=== PATIENT | female | born 1930 | race Caucasian/White ===

== ENCOUNTER 2017-06-03 19:52 | Emergency (ER) | payer MEDICARE, OTHER ==
[2017-06-03 20:05] VITALS: BP 126/50
[2017-06-03] MEDS ORDERED: Sodium Chloride 0.9% 10 ML Syringe FLUSH PRN (20:13)
[2017-06-03] MEDS ORDERED: Sodium Chloride 0.9% 1,000 ML IV SCH (20:15)
--- NOTE | 2017-06-03 21:31 | EDM.PDOC ---
ED HPI GENERAL MEDICAL PROBLEM - General Chief Complaint: Neurological Problem Stated Complaint: NAUSEA ABDOMINAL PAIN DIZZY Time Seen by Provider: 06/03/17 20:04 Source of Information: Reports: Patient, Family History Limitations: Reports: No Limitations - History of Present Illness INITIAL COMMENTS - FREE TEXT/NARRATIVE: The patient presents with near syncope. She has been having trouble with occipital headaches and dizziness. She had an MRI today that was negative. This evening she was sitting at the table and she got lightheaded and nearly passed out. This is different from the dizziness she has been experiencing. She has a headache but that is normal for her. She denies fever, chills, cough , chest pain, shortness of breath, abdominal pain, nausea or vomiting. She has no dysuria but she is going more often. She does have a soar throat for a couple of days. Onset: Gradual Duration: Hour(s): Severity: Moderate Improves with: Reports: None Worsens with: Reports: None Context: Reports: Activity (She was sitting at the table whent this started) Associated Symptoms: Reports: No Other Symptoms - Related Data Allergies Allergy/AdvReac Type Severity Reaction Status Date / Time No Known Allergies Allergy Verified 06/03/17 20:03 Home Meds: Home Meds Diltiazem HCl [Diltiazem 24Hr ER] 300 mg PO DAILY 03/12/15 [History] Bio Active 100 mg PO DAILY 01/07/16 [History] Calcium Carb/D3/Magnesium/Zinc [Jc Mag Zinc + D3] 1 each PO DAILY 01/07/16 [ History] Cellwise 1 tab PO DAILY 01/07/16 [History] Dabigatran Etexilate Mesylate [Pradaxa] 150 mg PO BID 01/07/16 [History] Gabapentin [Neurontin] 300 mg PO BEDTIME 01/07/16 [History] Hydrochlorothiazide 25 mg PO DAILY 01/07/16 [History] Multivitamin W-Minerals/Lutein [Vision Plus Lutein Vitamin] 1 each PO DAILY [History] Multivitamin [One Daily] 1 each PO DAILY 01/07/16 [History] Potassium Chloride [Klor-Con 10] 10 meq PO BIDMEALS 01/07/16 [History] Zolpidem [Ambien] 5 mg PO BEDTIME PRN 01/07/16 [History] traMADol [Ultram] 50 mg PO Q8H PRN 01/07/16 [History] Past Medical History HEENT History: Reports: Glaucoma, Impaired Vision, Macular Degeneration Cardiovascular History: Reports: Arrhythmia, Hypertension Musculoskeletal History: Reports: Arthritis - Past Surgical History GI Surgical History: Reports: Cholecystectomy Social & Family History - Tobacco Use Smoking Status *Q: Never Smoker Second Hand Smoke Exposure: No - Caffeine Use Caffeine Use: Reports: None - Recreational Drug Use Recreational Drug Use: No - Living Situation & Occupation Living situation: Reports: , Alone Occupation: Retired ED ROS GENERAL - Review of Systems Review Of Systems: See Below Constitutional: Reports: No Symptoms HEENT: Reports: No Symptoms Respiratory: Reports: No Symptoms Cardiovascular: Reports: Lightheadedness. Denies: Chest Pain Endocrine: Reports: No Symptoms GI/Abdominal: Reports: No Symptoms : Reports: No Symptoms Musculoskeletal: Reports: No Symptoms Skin: Reports: No Symptoms ED EXAM, NEURO - Physical Exam Exam: See Below Exam Limited By: No Limitations General Appearance: Alert, No Apparent Distress Ears: Normal External Exam Nose: Normal Inspection Head Exam: Atraumatic, Normocephalic Neck: Normal Inspection Respiratory/Chest: No Respiratory Distress, Lungs Clear, Normal Breath Sounds Cardiovascular: Regular Rate, Rhythm, No Edema, No Murmur GI/Abdominal: Soft, Non-Tender, No Organomegaly, No Mass Neurological: Alert, No Motor/Sensory Deficits, Oriented x 3 EKG INTERPRETATION EKG Date: 06/03/17 Time: 20:24 Rhythm: A-Fib Rate (Beats/Min): 66 Manning: Normal QRS: Normal ST-T: Normal QT: Normal EKG Interpretation Comments: Q waves in the anterior leads Course - Vital Signs Last Recorded V/S: Last Vital Signs Temp 98.0 F 06/03/17 20:03 Pulse 60 06/03/17 20:03 Resp 16 06/03/17 20:03 BP 126/50 L 06/03/17 20:03 Pulse Ox 94 L 06/03/17 20:03 - Orders/Labs/Meds Orders: Active Orders 24 hr Category Date Time Status Cardiac Monitoring [RC] . DIRECTED Care 06/03/17 20:13 Active EKG Documentation Completion [RC] STAT Care 06/03/17 20:14 Active Holter Monitor 48 Hours [RC] .PRN Care 02/13/18 22:19 Active Peripheral IV Care [RC] . DIRECTED Care 06/03/17 20:14 Active CULTURE STREP A CONFIRMATION [] Stat Lab 06/03/17 20:30 Results STREP SCRN A RAPID W CULT CONF [] Stat Lab 06/03/17 20:30 Results Sodium Chloride 0.9% [Normal Saline] 1,000 ml Med 06/03/17 20:15 Active IV .BOLUS Sodium Chloride 0.9% [Saline Flush] Med 06/03/17 20:13 Active 10 ml FLUSH ASDIRECTED PRN Peripheral IV Insertion Adult [OM.PC] Stat Oth 06/03/17 20:13 Ordered Medication Orders Sodium Chloride (Normal Saline) 1,000 mls @ 1,000 mls/hr IV .BOLUS SHILOH Last Admin: 06/03/17 20:27 Dose: 1,000 mls/hr Sodium Chloride (Saline Flush) 10 ml FLUSH ASDIRECTED PRN PRN Reason: Keep Vein Open Last Admin: 06/03/17 20:27 Dose: 10 ml Labs: Laboratory Tests 06/03/17 06/03/17 06/03/17 Range/Units 20:14 20:14 21:33 WBC 8.58 (3.98-10.04) K/mm3 RBC 4.77 (3.98-5.22) M/mm3 Hgb 15.2 (11.2-15.7) gm/L Hct 44.4 (34.1-44.9) % MCV 93.1 (79.4-94.8) fl MCH 31.9 (25.6-32.2) pg MCHC 34.2 (32.2-35.5) g/dl RDW Std Deviation 46.0 (36.4-46.3) fL Plt Count 187 (182-369) K/mm3 MPV 10.6 (9.4-12.3) fl Neut % (Auto) 78.9 H (34.0-71.1) % Lymph % (Auto) 6.8 L (19.3-51.7) % [place] % (Auto) 13.1 H (4.7-12.5) % Eos % (Auto) 0.8 (0.7-5.8) Baso % (Auto) 0.2 (0.1-1.2) % Neut # (Auto) 6.77 H (1.56-6.13) K/mm3 Lymph # (Auto) 0.58 L (1.18-3.74) K/mm3 [place] # (Auto) 1.12 H (0.24-0.36) K/mm3 Eos # (Auto) 0.07 (0.04-0.36) K/mm3 Baso # (Auto) 0.02 (0.01-0.08) K/mm3 Manual Slide Review Normal smear Sodium 138 (136-145) mEq/L Potassium 3.0 L (3.5-5.1) mEq/L Chloride 99 (98-107) mEq/L Carbon Dioxide 30 (21-32) mEq/L Anion Gap 12.0 (5-15) BUN 12 (7-18) mg/dL Creatinine 0.9 (0.55-1.02) mg/dL Est Cr Clr Drug Dosing 37.12 mL/min Estimated GFR (MDRD) 59 (>60) mL/min BUN/Creatinine Ratio 13.3 L (14-18) Glucose 127 H (83-115) mg/dL Calcium 9.0 (8.5-10.1) mg/dL Total Bilirubin 0.9 (0.2-1.0) mg/dL AST 21 (15-37) U/L ALT 25 (14-59) U/L Alkaline Phosphatase 88 (46-116) U/L Troponin I < 0.017 (0.00-0.056) ng/mL Total Protein 6.9 (6.4-8.2) g/dl Albumin 3.5 (3.4-5.0) g/dl Globulin 3.4 gm/dL Albumin/Globulin Ratio 1.0 (1-2) Urine Color Yellow (Yellow) Urine Appearance Clear (Clear) Urine pH 7.5 (5.0-8.0) Ur Specific [place] 1.020 (1.005-1.030) Urine Protein Negative (Negative) Urine Glucose (UA) Negative (Negative) Urine Ketones Negative (Negative) Urine Occult Blood Negative (Negative) Urine Nitrite Negative (Negative) Urine Bilirubin Negative (Negative) Urine Urobilinogen 0.2 (0.2-1.0) Ur Leukocyte Esterase 1+ H (Negative) Urine RBC 0-5 (0-5) /hpf Urine WBC 10-20 H (0-5) /hpf Ur Epithelial Cells 20-30 H (0-5) /hpf Urine Bacteria Many H (FEW) /hpf Urine Mucus Not seen (FEW) /hpf Meds: Medications Generic Name Dose Route Start Last Admin Trade Name Freq PRN Reason Stop Dose Admin Sodium Chloride 1,000 mls @ 1,000 mls/hr 06/03/17 20:15 06/03/17 20:27 Normal Saline IV 1,000 mls/hr .BOLUS SHILOH Administration Sodium Chloride 10 ml 06/03/17 20:13 06/03/17 20:27 Saline Flush FLUSH 10 ml ASDIRECTED PRN Administration Keep Vein Open - Re-Assessments/Exams Free Text/Narrative Re-Assessment/Exam: 06/03/17 21:47 I ordered an IV NS 1L bolus, EKG, labs and a UA. Her EKG shows A-fib with no acute changes. She has a history of A-fib. Her CBC looks good. Her K was low at 3. She is on oral potassium. Her glucose is 127. Her troponin was negative. Her strep was negative. I am waiting for her UA now. 06/03/17 22:22 Her UA looks contaminated. I will get her on a holter monitor for 48 hours. Departure - Departure Time of Disposition: 22:25 Disposition: Home, Self-Care 01 Condition: Good Clinical Impression: Near syncope - Discharge Information Referrals: Michelle Wright PA-C [Primary Care Provider] - Forms: ED Department Discharge Additional Instructions: Take your medication as prescribed. Wear the holter monitor for 48 hours. Follow up with Michelle Wright within a week. Please return if you are worse. - My Orders Last 24 Hours: My Active Orders 06/03/17 20:13 Cardiac Monitoring [RC] . DIRECTED Sodium Chloride 0.9% [Saline Flush] 10 ml FLUSH ASDIRECTED PRN Peripheral IV Insertion Adult [OM.PC] Stat 06/03/17 20:14 EKG Documentation Completion [RC] STAT Peripheral IV Care [RC] . DIRECTED 06/03/17 20:15 Sodium Chloride 0.9% [Normal Saline] 1,000 ml IV .BOLUS 06/03/17 20:30 CULTURE STREP A CONFIRMATION [] Stat STREP SCRN A RAPID W CULT CONF [] Stat 06/03/17 22:19 Holter Monitor 48 Hours [RC] .PRN - Assessment/Plan Last 24 Hours: My Active Orders 06/03/17 20:13 Cardiac Monitoring [RC] . DIRECTED Sodium Chloride 0.9% [Saline Flush] 10 ml FLUSH ASDIRECTED PRN Peripheral IV Insertion Adult [OM.PC] Stat 06/03/17 20:14 EKG Documentation Completion [RC] STAT Peripheral IV Care [RC] . DIRECTED 06/03/17 20:15 Sodium Chloride 0.9% [Normal Saline] 1,000 ml IV .BOLUS 06/03/17 20:30 CULTURE STREP A CONFIRMATION [RM] Stat STREP SCRN A RAPID W CULT CONF [] Stat 06/03/17 22:19 Holter Monitor 48 Hours [RC] .PRN
== END 2017-06-03 22:50 | disposition home or self-care (01) ==
LOC: JD.ED 19:52
DX: R55 Syncope and collapse (principal); I10 Essential (primary) hypertension; Z79.899 Other long term (current) drug therapy
CPT/HCPCS: 36415; 80053; 81001; 84484; 85025; 87081; 87430; 93005; 93010; 93225; 93226; 96360; 99284-25; 99285-25; J7040; J7050

== ENCOUNTER 2019-02-25 21:22 | Emergency (ER) | payer MEDICARE, OTHER ==
[2019-02-25 21:38] VITALS: BP 134/56; PULSE 61
[2019-02-25] MEDS ORDERED: Sodium Chloride 0.9% 1,000 ML IV STA (21:53)
[2019-02-25] MEDS ORDERED: Ondansetron 4 MG/2 ML SDV IVPUSH ONE (21:53)
[2019-02-25] MEDS ORDERED: HYDROmorphone 0.5 MG/0.5 ML Syringe IVPUSH ONE (21:55)
[2019-02-25] MEDS: Sodium Chloride 0.9% 10 ML Syringe FLUSH PRN ×2 (22:15→23:36)
--- NOTE | 2019-02-25 22:49 | EDM.PDOC ---
ED HPI GENERAL MEDICAL PROBLEM - General Chief Complaint: Gastrointestinal Problem Stated Complaint: VOMITING DIARRHEA Time Seen by Provider: 02/25/19 21:44 Source of Information: Reports: Patient History Limitations: Reports: No Limitations - History of Present Illness INITIAL COMMENTS - FREE TEXT/NARRATIVE: The patient presents with nausea, vomiting, diarrhea and lower abdominal pain. This all started about 2000 tonight. She ate dinner about 6pm and she had no issues with that. She denies fever, chills, cough, chest pain, shortness of breath, or dysuria. She does not have a gallbladder. She still has her appendix. Onset: Sudden Duration: Hour(s): Location: Reports: Abdomen Quality: Reports: Sharp Severity: Moderate Improves with: Reports: None Worsens with: Reports: None Associated Symptoms: Reports: Nausea/Vomiting. Denies: Chest Pain, Cough, Fever /Chills, Headaches, Shortness of Breath Abdomen Pain Score (Numeric/FACES): 3 - Related Data Allergies Allergy/AdvReac Type Severity Reaction Status Date / Time No Known Allergies Allergy Verified 02/25/19 21:35 Home Meds: Home Meds dilTIAZem HCl [Diltiazem 24Hr ER] 300 mg PO DAILY 03/12/15 [History] Hydrochlorothiazide 25 mg PO DAILY 01/07/16 [History] Multivitamin W-Minerals/Lutein [Vision Plus Lutein Vitamin] 1 each PO DAILY [History] Potassium Chloride [Klor-Con 10] 10 meq PO BIDMEALS 01/07/16 [History] Zolpidem [Ambien] 5 mg PO BEDTIME PRN 01/07/16 [History] traMADol [Ultram] 50 mg PO Q8H PRN 01/07/16 [History] Apixaban [Eliquis] 5 mg PO BID 02/25/19 [History] Fluticasone Propionate 1 spray SHA DAILY 02/25/19 [History] Folic Acid/Vit B Complex and C [Activite Tablet] 2 mg PO BID 02/25/19 [History] Furosemide 20 mg PO DAILY 02/25/19 [History] Girard Q Plus 2 tab PO DAILY 02/25/19 [History] Propylene Glycol/PEG 400/Pf [Systane 0.3-0.4% Eye Drops] 1 each OP ASDIRECTED [History] Ondansetron [Zofran ODT] 4 mg PO Q6H PRN #20 tab.dis 02/26/19 [Rx] Past Medical History HEENT History: Reports: Epistaxis, Glaucoma, Impaired Vision, Macular Degeneration Cardiovascular History: Reports: Afib, Hypertension Gastrointestinal History: Reports: Diverticulosis [employer] History: Reports: Musculoskeletal History: Reports: Arthritis - Past Surgical History HEENT Surgical History: Reports: Cataract Surgery, Tonsillectomy GI Surgical History: Reports: Cholecystectomy Female Surgical History: Reports: Mastectomy Musculoskeletal Surgical History: Reports: Knee Replacement, Other (See Below) Other Musculoskeletal Surgeries/Procedures:: Spinal stenosis Social & Family History - Tobacco Use Smoking Status *Q: Unknown Ever Smoked - Caffeine Use Caffeine Use: Reports: None - Living Situation & Occupation Living situation: Reports: , Alone Occupation: Retired ED ROS GENERAL - Review of Systems Review Of Systems: See Below Constitutional: Reports: No Symptoms HEENT: Reports: No Symptoms Respiratory: Reports: No Symptoms Cardiovascular: Reports: No Symptoms Endocrine: Reports: No Symptoms GI/Abdominal: Reports: Abdominal Pain, Diarrhea, Nausea, Vomiting : Reports: No Symptoms Musculoskeletal: Reports: No Symptoms ED EXAM, GI/ABD - Physical Exam Exam: See Below Exam Limited By: No Limitations General Appearance: Alert, No Apparent Distress Ears: Normal External Exam Nose: Normal Inspection Head: Atraumatic, Normocephalic Neck: Normal Inspection Respiratory/Chest: No Respiratory Distress, Lungs Clear, Normal Breath Sounds Cardiovascular: Regular Rate, Rhythm, No Edema, No Murmur GI/Abdominal Exam: Soft, No Organomegaly, No Mass, Tender (Moderate tenderness to the lower abdomen) Course - Vital Signs Last Recorded V/S: Last Vital Signs Temp 97.4 F 02/25/19 21:35 Pulse 61 02/25/19 21:35 Resp 18 02/25/19 21:35 BP 134/56 L 02/25/19 21:35 Pulse Ox 95 02/25/19 21:35 - Orders/Labs/Meds Orders: Active Orders 24 hr Category Date Time Status Peripheral IV Care [RC] . DIRECTED Care 02/25/19 21:53 Active Abdomen Pelvis w Cont [CT] Stat Exams 02/25/19 21:53 Taken Sodium Chloride 0.9% [Saline Flush] Med 02/25/19 21:53 Active 10 ml FLUSH ASDIRECTED PRN ED Antiemetic Medication Reflex [OM.PC] Stat Oth 02/25/19 21:53 Ordered Peripheral IV Insertion Adult [OM.PC] Stat Oth 02/25/19 21:53 Ordered Medication Orders Sodium Chloride (Saline Flush) 10 ml FLUSH ASDIRECTED PRN PRN Reason: Keep Vein Open Last Admin: 02/25/19 23:36 Dose: 10 ml Admin: 02/25/19 22:15 Dose: 10 ml Labs: Laboratory Tests 02/25/19 02/25/19 02/26/19 Range/Units 22:15 22:15 00:30 WBC 14.15 H (3.98-10.04) K/mm3 RBC 5.07 (3.98-5.22) M/mm3 Hgb 15.9 H (11.2-15.7) gm/dl Hct 46.5 H (34.1-44.9) % MCV 91.7 (79.4-94.8) fl MCH 31.4 (25.6-32.2) pg MCHC 34.2 (32.2-35.5) g/dl RDW Std Deviation 46.1 (36.4-46.3) fL Plt Count 201 (182-369) K/mm3 MPV 10.6 (9.4-12.3) fl Neut % (Auto) 89.0 H (34.0-71.1) % Lymph % (Auto) 5.1 L (19.3-51.7) % [place] % (Auto) 5.1 (4.7-12.5) % Eos % (Auto) 0.6 L (0.7-5.8) Baso % (Auto) 0.1 (0.1-1.2) % Neut # (Auto) 12.59 H (1.56-6.13) K/mm3 Lymph # (Auto) 0.72 L (1.18-3.74) K/mm3 [place] # (Auto) 0.72 H (0.24-0.36) K/mm3 Eos # (Auto) 0.09 (0.04-0.36) K/mm3 Baso # (Auto) 0.01 (0.01-0.08) K/mm3 Manual Slide Review Abnormal smear Sodium 140 (136-145) mEq/L Potassium 2.8 L (3.5-5.1) mEq/L Chloride 99 (98-107) mEq/L Carbon Dioxide 32 (21-32) mEq/L Anion Gap 11.8 (5-15) BUN 25 H (7-18) mg/dL Creatinine 1.0 (0.55-1.02) mg/dL Est Cr Clr Drug Dosing 32.17 mL/min Estimated GFR (MDRD) 52 (>60) mL/min BUN/Creatinine Ratio 25.0 H (14-18) Glucose 170 H (83-115) mg/dL Calcium 9.4 (8.5-10.1) mg/dL Total Bilirubin 0.6 (0.2-1.0) mg/dL AST 13 L (15-37) U/L ALT 23 (14-59) U/L Alkaline Phosphatase 97 (46-116) U/L Total Protein 7.2 (6.4-8.2) g/dl Albumin 3.7 (3.4-5.0) g/dl Globulin 3.5 gm/dL Albumin/Globulin Ratio 1.1 (1-2) Lipase 104 (73-393) U/L Urine Color Yellow (Yellow) Urine Appearance Clear (Clear) Urine pH 6.5 (5.0-8.0) Ur Specific [place] 1.015 (1.005-1.030) Urine Protein Negative (Negative) Urine Glucose (UA) Negative (Negative) Urine Ketones Negative (Negative) Urine Occult Blood Trace-lysed H (Negative) Urine Nitrite Negative (Negative) Urine Bilirubin Negative (Negative) Urine Urobilinogen 0.2 (0.2-1.0) Ur Leukocyte Esterase Negative (Negative) Urine RBC 0-5 (0-5) /hpf Urine WBC Not seen (0-5) /hpf Ur Squamous Epith Cells 0-5 (0-5) /hpf Urine Bacteria Moderate H (FEW) /hpf Hyaline Casts 5-10 H (0-5) /lpf Urine Mucus Few (FEW) /hpf Meds: Medications Generic Name Dose Route Start Last Admin Trade Name Freq PRN Reason Stop Dose Admin Sodium Chloride 10 ml 02/25/19 21:53 02/25/19 23:36 Saline Flush FLUSH 10 ml ASDIRECTED PRN Administration Keep Vein Open Discontinued Medications Generic Name Dose Route Start Last Admin Trade Name Freq PRN Reason Stop Dose Admin Diatrizoate Meglum/Diatrizoate Sod 90 ml 02/25/19 22:56 02/25/19 23:35 Gastrografin 37% PO 02/25/19 22:57 90 ml ONETIME ONE Administration Hydromorphone HCl 0.25 mg 02/25/19 21:55 02/25/19 22:14 Dilaudid IVPUSH 02/25/19 21:56 0.25 mg ONETIME ONE Administration Sodium Chloride 1,000 mls @ 1,000 mls/hr 02/25/19 21:53 02/25/19 22:12 Normal Saline IV 02/25/19 22:52 1,000 mls/hr .BOLUS STA Administration Iopamidol 100 ml 02/25/19 22:56 02/25/19 23:36 Isovue-300 (61%) IVPUSH 02/25/19 22:57 100 ml ONETIME ONE Administration Ondansetron HCl 4 mg 02/25/19 21:53 02/25/19 22:12 Zofran IVPUSH 02/25/19 21:54 4 mg ONETIME ONE Administration - Re-Assessments/Exams Free Text/Narrative Re-Assessment/Exam: 02/25/19 22:48 I ordered an IV NS 500ml bolus, zofran 4mg IV, dilaudid 0.25mg IV, labs, UA and a CT of her abdomen and pelvis. 02/26/19 01:20 Her WBC was elevated at 14.15. Her K was low at 2.8. It has been low in the past. Her glucose was elevated at 170. Her lipase was negative. Her CT shows diffuse, mild wall thickening of the bladder. In the correct clinical setting, this may suggest cystitis. Recommend correlation with laboratory findings. Alternatively this may be secondary to chronic outlet obstruction. Moderate to severe atherosclerotic changes in the visualized arteries, increased compared with the previous study. 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 Stable findings consistent with a previous cholecystectomy. Interval development of mild dilatation of the biliary ducts, this may be physiological due to the previous cholecystectomy. Increase in size of the multiple renal cysts bilaterally. Colonic diverticulosis. No evidence for diverticulitis. Small hiatal hernia. Incidental/nonacute findings are listed in the report. I am waiting for her UA now. 02/26/19 01:46 Her UA shows no UTI. I will discharge her home with some zofran. Departure - Departure Time of Disposition: 01:50 Disposition: Home, Self-Care 01 Condition: Good Clinical Impression: Abdominal pain, Diarrhea Vomiting Qualifiers: Vomiting type: unspecified Vomiting Intractability: non-intractable Nausea presence: with nausea Qualified Code(s): R11.2 - Nausea with vomiting, unspecified - Discharge Information *PRESCRIPTION DRUG MONITORING PROGRAM REVIEWED*: No *COPY OF PRESCRIPTION DRUG MONITORING REPORT IN PATIENT KAVITA: No Prescriptions: Ondansetron [Zofran ODT] 4 mg PO Q6H PRN #20 tab.dis PRN Reason: Nausea\vomiting Referrals: Devon Shelby MD [Primary Care Provider] - 1 Week Forms: ED Department Discharge Additional Instructions: Drink plenty of fluids. Take the zofran as needed for nausea and vomiting. Advance your diet as tolerated. Please return if you are worse. Follow up with Dr Shelby within a week. - My Orders Last 24 Hours: My Active Orders 02/25/19 21:53 Peripheral IV Care [RC] . DIRECTED Abdomen Pelvis w Cont [CT] Stat Sodium Chloride 0.9% [Saline Flush] 10 ml FLUSH ASDIRECTED PRN ED Antiemetic Medication Reflex [OM.PC] Stat Peripheral IV Insertion Adult [OM.PC] Stat - Assessment/Plan Last 24 Hours: My Active Orders 02/25/19 21:53 Peripheral IV Care [RC] . DIRECTED Abdomen Pelvis w Cont [CT] Stat Sodium Chloride 0.9% [Saline Flush] 10 ml FLUSH ASDIRECTED PRN ED Antiemetic Medication Reflex [OM.PC] Stat Peripheral IV Insertion Adult [OM.PC] Stat
[2019-02-25] MEDS ORDERED: Iopamidol 612 MG/ML 100 ML Bottle IVPUSH ONE (22:56)
[2019-02-25] MEDS ORDERED: Diatrizoate Meglumine/Diatrizoate Sodium 37% 120 ML Bottle PO ONE (22:56)
--- NOTE | 2019-02-26 09:48 | CT ---
CT abdomen and pelvis Technique: Multiple axial sections were obtained from above the dome of the diaphragm inferiorly through the pubic symphysis. Intravenous and oral contrast has been given. Delayed images were obtained through the bladder. Comparison: Previous CT abdomen and pelvis exam of 08/18/12. Findings: Visualized lung bases show nothing. Mild intrahepatic biliary duct dilatation is seen. Gallbladder not visualized presumably from prior cholecystectomy. Biliary duct dilatation may relate to previous cholecystectomy if patient has no abnormal biliary enzymes. No other focal abnormality is identified within the liver. Spleen appears within normal limits. Adrenal glands show no nodule. Pancreas is within normal limits. Kidneys show evidence of cysts. These cysts have increased in size from previous exam. Delayed images show contrast within both distal ureters and within the bladder. Aorta shows atherosclerotic change without aneurysm. No retroperitoneal adenopathy is seen. No mesenteric abnormalities are seen. No pelvic mass is noted. Bladder wall is minimally prominent which is most likely normal. Mild diverticulosis noted within the sigmoid colon and descending colon without diverticulitis. No free fluid or inflammatory change is noted. Appendix is visualized and is normal in size. Small hiatal hernia is noted. Bone window settings were reviewed which show degenerative change within the spine most prominent at L4-L5 with mild spondylolisthesis due to severe degenerative apophyseal change. Degenerative change also noted within both hips. Sacroiliac joints also show vacuum phenomena and degenerative sclerosis. Impression: 1. Multiple findings as noted above. Nothing acute is suspected on CT study of the abdomen and pelvis. 2. Preliminary report makes mention of stenosis within the SMA. This cannot be confirmed as a definite finding as this study was not performed as a CT angiogram protocol. Diagnostic code #2 I mostly agree with preliminary report from [facility] (difficult to confirm SMA stenosis), finalized on 02/26/19, 1:00 AM Central Time, code #2
== END 2019-02-26 01:56 | disposition home or self-care (01) ==
LOC: JD.ED 21:22
DX: R10.30 Lower abdominal pain, unspecified (principal); R11.2 Nausea with vomiting, unspecified; R19.7 Diarrhea, unspecified; I10 Essential (primary) hypertension; I48.91 Unspecified atrial fibrillation; Z79.899 Other long term (current) drug therapy; Z79.01 Long term (current) use of anticoagulants; Z90.49 Acquired absence of other specified parts of digestive tract
CPT/HCPCS: 36415; 74177; 74177-26; 80053; 81001; 83690; 85025; 96361; 96374; 99284-25; J1170; J2405; J7040; Q9963; Q9967

== ENCOUNTER 2019-10-14 21:23 | Emergency (ER) | payer MEDICARE, OTHER ==
[2019-10-14 22:01] VITALS: BP 152/92; PULSE 78
--- NOTE | 2019-10-15 00:17 | EDM.PDOC ---
ED HPI GENERAL MEDICAL PROBLEM - General Chief Complaint: Lower Extremity Injury/Pain Stated Complaint: ANKLE PAIN Time Seen by Provider: 10/14/19 23:54 Source of Information: Reports: Patient History Limitations: Reports: No Limitations - History of Present Illness INITIAL COMMENTS - FREE TEXT/NARRATIVE: Mrs. Boggs is a very pleasant 89-year-old woman with a past medical history significant for untreated peripheral neuropathy due to lumbar spinal stenosis, who now presents to the ED stating that she was woken at 3 AM with medial right foot pain. The pain is intermittent and shock-like. She applied a topical lotion, along with a homeopathic solution named "diabetic nerve pain reliever" and 2 tablets of tramadol (note that the patient does not have diabetes). She states that her pain resolved, but then recurred around 20:00. She again lied the topical lotion and homeopathic solution, along with 2 tablets of tramadol, which improved her symptoms, however, did not resolve them completely, wherefore she came to the ED. The patient denies prior similar symptoms, however, she acknowledges that she has a history of peripheral neuropathy, for which she is prescribed gabapentin, however, she states that she does not take the gabapentin, because it makes her feel depressed. She denies recent injury to the foot or ankle. Here in the ED, the patient's initial BP is found to be mildly elevated at 152/92, otherwise, she is hemodynamically stable, afebrile, saturating 94% on room air. Other than the right foot pain, the patient denies recent fever, chills, sore throat, ear pain, nasal or sinus congestion, cough, dyspnea, chest pain, palpitations, nausea, vomiting, constipation, diarrhea, abdominal pain, urinary symptoms, recent weight gain or weight loss, recent bloody bowel movements or black bowel movements, recent joint aches, headaches, or rashes. The patient's PCP is Dr. Devon Shelby. She has an appointment to see him on 10/26/2019. Her EP Cut Order Hand is Dr. Mauro Bryson. Treatments HOTEL MAID: Reports: Other (see below) Other Treatments HOTEL MAID: tramadol Right Feet Pain Score (Numeric/FACES): 3 - Related Data Allergies Allergy/AdvReac Type Severity Reaction Status Date / Time No Known Allergies Allergy Verified 02/25/19 21:35 Home Meds: Home Meds dilTIAZem HCl [Diltiazem 24Hr ER] 300 mg PO DAILY 03/12/15 [History] Hydrochlorothiazide 25 mg PO DAILY 01/07/16 [History] Multivit with Minerals/Lutein [Vision Plus Lutein Vitamin] 1 each PO DAILY 01/07/16 [History] Potassium Chloride [Klor-Con 10] 10 meq PO BIDMEALS 01/07/16 [History] Zolpidem [Ambien] 5 mg PO BEDTIME PRN 01/07/16 [History] traMADol [Ultram] 50 mg PO Q8H PRN 01/07/16 [History] Apixaban [Eliquis] 5 mg PO BID 02/25/19 [History] Folic Acid/Vit B Complex and C [Activite Tablet] 2 mg PO BID 02/25/19 [History] Furosemide 20 mg PO DAILY 02/25/19 [History] [place] Q Plus 2 tab PO DAILY 02/25/19 [History] Propylene Glycol/PEG 400/Pf [Systane 0.3-0.4% Eye Drops] 1 each OP ASDIRECTED 02/25/19 [History] Beta-Carotene(A)-Vits C,E/Mins [Vision Vitamins] 4 tab PO DAILY 10/14/19 [History] Folic Acid/Vit B Complex and C [Activite Tablet] 1 mg PO DAILY 10/14/19 [History] Phenylephrine HCl [Sinus Relief] 1 spray TOP DAILY 10/14/19 [History] Past Medical History HEENT History: Reports: Glaucoma, Macular Degeneration Cardiovascular History: Reports: Afib (chronic), Hypertension Gastrointestinal History: Reports: Diverticulosis Musculoskeletal History: Reports: Arthritis, Other (See Below) (Lumbar spinal stenosis) Neurological History: Reports: Neuropathy, Peripheral (untreated) Psychiatric History: Reports: Other (See Below) (Insomnia) Oncologic (Cancer) History: Reports: Breast (right, s/p mastectomy + CTx) - Past Surgical History HEENT Surgical History: Reports: Cataract Surgery (bilateral), Tonsillectomy GI Surgical History: Reports: Cholecystectomy (1988), Colonoscopy (x 2) Neurological Surgical History: Reports: Lumbar Spine (laminectomy) Musculoskeletal Surgical History: Reports: Knee Replacement (bilateral) Oncologic Surgical History: Reports: Mastectomy (right) Social & Family History - Tobacco Use Smoking Status *Q: Never Smoker - Caffeine Use Caffeine Use: Reports: Coffee, Tea - Alcohol Use Alcohol Use History: Yes Alcohol Use Frequency: Socially - Recreational Drug Use Recreational Drug Use: No - Living Situation & Occupation Living situation: Reports: , Alone Occupation: Retired Review of Systems - Review of Systems Review Of Systems: Comprehensive ROS is negative, except as noted in HPI. ED EXAM, GENERAL - Physical Exam Exam: See Below Exam Limited By: No Limitations General Appearance: Alert, WD/WN, No Apparent Distress Extremities: Other (There are varicosities to the patient's feet, however, she has strong dorsalis pedis and posterior tibialis pulses, and both feet are warm. No tenderness to palpation of the medial heel or arch of her foot, which is where she is indicating that she has the intermittent pain. No pain to PROM or AROM of the right ankle.) Course - Vital Signs Last Recorded V/S: Last Vital Signs Temp 36.3 C 10/14/19 21:59 Pulse 78 10/14/19 21:59 Resp 20 10/14/19 21:59 BP 152/92 H 10/14/19 21:59 Pulse Ox 94 L 10/14/19 21:59 - Re-Assessments/Exams Free Text/Narrative Re-Assessment/Exam: 10/15/19 00:12 As above, the patient has been experiencing intermittent shock-like pain to her medial right foot, however, she has no tenderness to palpation of the foot. Her pain is most consistent with nerve pain, and, indeed, it turns out that the patient has untreated peripheral neuropathy. She has gabapentin at home, but does not like to take it, because it makes her feel depressed. I explained to the patient that she will need to decide if her depression is worse than her nerve pain. Additionally, she can discuss the issue with Dr. Shelby when she follows up with him on 10/26/2019. Departure - Departure Time of Disposition: 00:14 Disposition: Home, Self-Care 01 Condition: Good Clinical Impression: Radiculopathy with lower extremity symptoms - Discharge Information *PRESCRIPTION DRUG MONITORING PROGRAM REVIEWED*: Not Applicable *COPY OF PRESCRIPTION DRUG MONITORING REPORT IN PATIENT KAVITA: Not Applicable Instructions: Radicular Pain, Neuropathic Pain Referrals: Devon Shelby MD [Primary Care Provider] - Mauro Bryson [Ordering Only Provider] - Forms: ED Department Discharge Additional Instructions: You were seen in the emergency room after developing intermittent sharp-like pain to your right foot last night. Based on your history and physical examination, your pain is most likely nerve pain due to your peripheral neuropathy. You may continue to use the topical solutions and tramadol to treat your pain, however, if your pain gets bad enough, you should restart your gabapentin. If you continue to have this pain, we recommend that you discuss it with your PCP, Dr. Devon Shelby, when you follow-up with him at your previously alhaji eduled appointment on 10/26/2019. If any other problems, please do not hesitate to return to the ER. Sepsis Event Note (ED) - Evaluation Sepsis Screening Result: No Definite Risk
== END 2019-10-15 00:26 | disposition home or self-care (01) ==
LOC: JD.ED 21:23
DX: M54.10 Radiculopathy, site unspecified (principal); I48.91 Unspecified atrial fibrillation; I10 Essential (primary) hypertension; Z79.01 Long term (current) use of anticoagulants; Z79.899 Other long term (current) drug therapy
CPT/HCPCS: 99282; 99283

== ENCOUNTER 2019-12-25 11:27 | Emergency (ER) | payer MEDICARE, OTHER ==
[2019-12-25 11:42] VITALS: BP 117/102; PULSE 88
--- NOTE | 2019-12-25 11:45 | EDM.PDOC ---
ED HPI GENERAL MEDICAL PROBLEM - General Chief Complaint: Lower Extremity Injury/Pain Stated Complaint: HIP PAIN Time Seen by Provider: 12/25/19 11:40 Source of Information: Reports: Patient History Limitations: Reports: No Limitations - History of Present Illness INITIAL COMMENTS - FREE TEXT/NARRATIVE: Patient is an 89-year-old female presenting to the emergency department with complaints of right lateral and posterior hip pain for the last 2 days. She states she was lifting a bag of potting soil when the pain began. She is able to bear weight on the extremity, however it is painful. She denies any recent falls. She denies any history of previous fractures or hip replacements to that extremity. She has not taken anything for pain today, however she does have a prescription for tramadol as needed. Left Hip Pain Score (Numeric/FACES): 0 - Related Data Allergies Allergy/AdvReac Type Severity Reaction Status Date / Time No Known Allergies Allergy Verified 12/25/19 11:37 Home Meds: Home Meds dilTIAZem HCl [Diltiazem 24Hr ER] 300 mg PO DAILY 03/12/15 [History] Hydrochlorothiazide 25 mg PO DAILY 01/07/16 [History] Multivit with Minerals/Lutein [Vision Plus Lutein Vitamin] 1 each PO DAILY 01/07/16 [History] Potassium Chloride [Klor-Con 10] 10 meq PO BIDMEALS 01/07/16 [History] Zolpidem [Ambien] 5 mg PO BEDTIME PRN 01/07/16 [History] traMADol [Ultram] 50 mg PO Q8H PRN 01/07/16 [History] Apixaban [Eliquis] 5 mg PO BID 02/25/19 [History] Folic Acid/Vit B Complex and C [Activite Tablet] 2 mg PO BID 02/25/19 [History] Furosemide 20 mg PO DAILY 02/25/19 [History] [place] Q Plus 2 tab PO DAILY 02/25/19 [History] Propylene Glycol/PEG 400/Pf [Systane 0.3-0.4% Eye Drops] 1 each OP ASDIRECTED 02/25/19 [History] Beta-Carotene(A)-Vits C,E/Mins [Vision Vitamins] 4 tab PO DAILY 10/14/19 [History] Folic Acid/Vit B Complex and C [Activite Tablet] 1 mg PO DAILY 10/14/19 [History] Phenylephrine HCl [Sinus Relief] 1 spray TOP DAILY 10/14/19 [History] Past Medical History HEENT History: Reports: Glaucoma, Macular Degeneration Cardiovascular History: Reports: Afib (chronic), Hypertension Gastrointestinal History: Reports: Diverticulosis [employer] History: Reports: Musculoskeletal History: Reports: Arthritis, Other (See Below) (Lumbar spinal stenosis) Neurological History: Reports: Neuropathy, Peripheral (untreated) Psychiatric History: Reports: Other (See Below) (Insomnia) Oncologic (Cancer) History: Reports: Breast (right, s/p mastectomy + CTx) - Past Surgical History HEENT Surgical History: Reports: Cataract Surgery (bilateral), Tonsillectomy GI Surgical History: Reports: Cholecystectomy (1988), Colonoscopy (x 2) Neurological Surgical History: Reports: Lumbar Spine (laminectomy) Musculoskeletal Surgical History: Reports: Knee Replacement (bilateral) Oncologic Surgical History: Reports: Mastectomy (right) Social & Family History - Tobacco Use Smoking Status *Q: Never Smoker - Caffeine Use Caffeine Use: Reports: Coffee - Recreational Drug Use Recreational Drug Use: No - Living Situation & Occupation Living situation: Reports: , Alone Occupation: Retired Review of Systems - Review of Systems Review Of Systems: Comprehensive ROS is negative, except as noted in HPI. ED EXAM, GENERAL - Physical Exam Exam: See Below Exam Limited By: No Limitations General Appearance: Alert, WD/WN, No Apparent Distress Respiratory/Chest: No Respiratory Distress, Lungs Clear, Normal Breath Sounds, No Accessory Muscle Use, Chest Non-Tender Cardiovascular: Normal Peripheral Pulses, Regular Rate, Rhythm, No Edema, No Gallop, No JVD, No Murmur, No Rub Extremities: Normal Inspection, Normal Range of Motion, No Pedal Edema, Normal Capillary Refill, Other (Tenderness to palpation over the right greater trochanter and low posterior right hip) Neurological: Alert, Oriented, CN II-XII Intact, Normal Cognition, Normal Gait, Normal Reflexes, No Motor/Sensory Deficits Psychiatric: Normal Affect, Normal Mood Skin Exam: Warm, Dry, Intact, Normal Color, No Rash Course - Vital Signs Last Recorded V/S: Last Vital Signs Temp 97.8 F 12/25/19 11:37 Pulse 88 12/25/19 11:37 Resp 20 12/25/19 11:37 BP 117/102 H 12/25/19 11:37 Pulse Ox 96 12/25/19 11:37 - Orders/Labs/Meds Orders: Active Orders 24 hr Category Date Time Status Hip Min 2V or 3V w Pelvis Rt [CR] Stat Exams 12/25/19 11:49 Taken Hip wo Cont Rt [CT] Stat Exams 12/25/19 12:28 Taken - Re-Assessments/Exams Free Text/Narrative Re-Assessment/Exam: 12/25/19 13:41 X-ray and CT scan of the right hip are both negative for any acute fractures. We will discharge the patient home with instructions to use tramadol and heating pad as needed. Discharge instructions as documented. Departure - Departure Time of Disposition: 13:41 Disposition: Home, Self-Care 01 Condition: Good Clinical Impression: Hip pain, right - Discharge Information *PRESCRIPTION DRUG MONITORING PROGRAM REVIEWED*: No *COPY OF PRESCRIPTION DRUG MONITORING REPORT IN PATIENT KAVITA: No Instructions: Hip Pain Referrals: Devon Shelby MD [Primary Care Provider] - Forms: ED Department Discharge Additional Instructions: You were seen in the emergency department today for pain to your right hip for the last 2 days. X-ray and CT scan were completed and were both negative for fractures. It is likely that you strained the muscles surrounding the hip. Recommend that you continue to use the tramadol that you have at home for pain. You may also apply heating pad to the area as needed. If you continue to have discomfort after a few days, recommend that you follow-up with your primary care provider. Return to the ER as needed. Sepsis Event Note (ED) - Evaluation Sepsis Screening Result: No Definite Risk - Focused Exam Vital Signs: Vital Signs Temp Pulse Resp BP Pulse Ox 12/25/19 11:37 97.8 F 88 20 117/102 H 96 - My Orders Last 24 Hours: My Active Orders 12/25/19 11:49 Hip Min 2V or 3V w Pelvis Rt [CR] Stat 12/25/19 12:28 Hip wo Cont Rt [CT] Stat - Assessment/Plan Last 24 Hours: My Active Orders 12/25/19 11:49 Hip Min 2V or 3V w Pelvis Rt [CR] Stat 12/25/19 12:28 Hip wo Cont Rt [CT] Stat
--- NOTE | 2019-12-27 11:03 | CR ---
Pelvis and right hip: AP view of the pelvis was obtained as well as AP and frog-leg lateral views of the left hip. Joint space narrowing is noted within both hips. Bony structures are osteopenic. Disc space narrowing and endplate spurring are noted within the lower lumbar spine. Sacroiliac joints show minimal degenerative change. No acute fracture or dislocation is seen. Impression: 1. Degenerative change and osteopenia. 2. Nothing acute is appreciated. Diagnostic code #2 This report was dictated in MDT I agree with preliminary report from [facility], finalized on 12/25/19, 1:30 PM Central Daylight Time
--- NOTE | 2019-12-28 09:24 | CT ---
CT right hip Technique: Multiple axial sections through the right hip were obtained. Reconstructed coronal and sagittal images were obtained. Intravenous contrast was not utilized. Findings: Joint space narrowing is noted within the right hip. Slight osteophytes are seen off the femoral head. Osteopenia is noted. No acute fracture is appreciated. Impression: 1. Degenerative change and osteopenia. 2. Nothing acute is appreciated. Diagnostic code #2 This report was dictated in MDT I agree with preliminary report from [facility], finalized on 12/25/19, 2:37 PM Central Daylight Time [facility]
== END 2019-12-25 13:52 | disposition home or self-care (01) ==
LOC: JD.ED 11:27
DX: M25.551 Pain in right hip (principal); I10 Essential (primary) hypertension; I48.91 Unspecified atrial fibrillation; M19.90 Unspecified osteoarthritis, unspecified site; Z79.899 Other long term (current) drug therapy; Z79.01 Long term (current) use of anticoagulants
CPT/HCPCS: 73502-26-RT; 73502-RT; 73700-26-RT; 73700-RT; 99282; 99284-25